=== PATIENT | female | born 2000 | race Caucasian/White ===

== ENCOUNTER 2023-02-26 05:10 | Inpatient (IN) | payer SELFPAY, OTHER ==
[2023-02-26] VITALS (47 sets, daily range): BP systolic 88–124; BP diastolic 45–74; PULSE 66–106; RESP 16–18; TEMP 36.4–37.6; O2SAT 94–100; BMI 27.8
[2023-02-26] MEDS: Lactated Ringers 1,000 ML 50 ML IV (05:30)
[2023-02-26 05:47] LABS: Absolute Lymphocyte Count 1.16 X10^3/uL (0.83-4.51); Absolute Neutrophil Count 11.4 X10^3/uL (2.0-7.7); Basophil# 0.06 X10^3/uL; Basophil% 0.4 % (0-1); Eosinophil# 0.04 X10^3/uL; Eosinophils% 0.3 % (0-5); Hematocrit 34.4 % (37-47); Hemoglobin 11.7 g/dL (12.0-15.0); Lymphocyte # 1.16 X10^3/ul (0.83-4.51); Lymphocyte % 8.6 % (19-41); Mean Corpuscular Hgb 32.3 pg (27.0-32.0); Mean Platelet Vol. 9.1 fl (6.2-12.0); Monocyte% 3.7 % (0-10); NRBC Flagged by Analyzer 0 % (0-5); Neutrophil # 11.42 X10^3/uL (2.7-7.7); Neutrophil % 85.1 % (47-70); Platelet Count 221 K/mm3 (150-450); RBC Distribution Width CV 13.7 % (11.6-14.6); RBC Distribution Width SD 47.8 fl (35.1-43.9); Red Blood Count 3.62 M/mm3 (4.2-5.4); White Blood Count 13.4 K/mm3 (4.4-11.0)
--- NOTE | 2023-02-26 06:31 | PCM.HP.OB ---
HPI - General General Date of Admission: 02/26/23 Date of Service: 02/26/23 HPI Narrative LANDON LITTLE, is a 23 F who presents with ctxs. Maternal Data Information Final GENESIS: 02/26/23 Gestational age: 40 weeks PFSH PFS Medical History delivery delivered depression Medical History no medical history Allergy/AdvReac Type Severity Reaction Status Date / Time No Known Drug Allergies Allergy Other Verified 02/26/23 05:37 Family History no significant family his Surgical History History of appendectomy Surgical History no surgical history Social History Smoking Status: Never smoker History Elective abortions Hx Para 1 Spontaneous abortions Hx # Term Pregnancies Ectopic pregnancies Hx # Pregnancies Multiple births # of living children NST FHR Rate Baby A Baseline: 145 Variability:: Moderate Accelerations:: 15 x 15 Decelerations:: Variable Uterine Activity:: Q 1-4 minutes Vital Signs Vital Signs Vital Signs: 02/26/23 02:17 02/26/23 02:17 02/26/23 05:45 Temperature 98.5 F Temperature Source Temporal Pulse Rate Blood Pressure 98/55 L BP Systolic 98 BP Diastolic 55 02/26/23 05:45 02/26/23 05:45 02/26/23 05:45 Temperature 98.5 F Temperature Source Temporal Pulse Rate 85 Blood Pressure BP Systolic BP Diastolic Weight Weight: 157 lb 6.561 oz Body Mass Index (BMI) 27.8 Physical Exam Const alert, oriented x3 and no apparent distress Narrative: cvx - 3cm, posterior per RN Labs Labs Labs: Blood Type A POSITIVE Antibody Screen NEGATIVE Hct 34.4 % (37-47) L Hgb 11.7 g/dL (12.0-15.0) L Syphilis Total Ab Pending See [facility] H&P Assessment & Plan (1) 40 weeks gestation of : COMMENT: @ 40 weeks (2) Patient desires vaginal after section (): PLAN: Plan Admit to L&D Expectant management Pain - epidural when ready GBS negative EFW - less than 4500g, patient with adequate pelvis Desires TOLAC - monitoring per [facility] protocol updated as taking over care
[2023-02-26 07:47] LABS: Syphilis Antibodies Non-reactive
[2023-02-26] MEDS: Oxytocin 15 Units/NS 250ml 15 UNITS/250 ML IV.SOLN 2 UNITS IV (08:05)
--- NOTE | 2023-02-26 08:20 | PCM.PN.BLA ---
Progress Note pt seen at bedside, VE: 3-4/80/-2. AROM- scant clear fluid. Irregular contraction pattern. Will start pitocin.
[2023-02-26] MEDS: LACTATED RINGERS 500 ML 999 ML IV ×2 (08:44→12:14)
[2023-02-26] MEDS: fentaNYL-bupivacaine (epidural) 100 ML BAG EPIDURAL (09:40)
[2023-02-26] MEDS: Lactated Ringers 1,000 ML 200 ML IV (12:14)
--- NOTE | 2023-02-26 13:07 | PCM.PN.BLA ---
Progress Note pt seen at bedside, VE performed: /-1. head feels to be asynclitic and OP position. Had nurse examine as well. No descent with pushing but just started and coached on pushing.
[2023-02-26] MEDS: Acetaminophen 500 MG Tablet PO (14:05)
[2023-02-26] MEDS: Sodium Citrate/Citric Acid 30 ML UDC PO (14:14)
[2023-02-26] MEDS: Cefazolin 2 GM in 0.9% Normal Saline 100 ML IV (14:47)
[2023-02-26] MEDS: Methylergonovine 0.2 MG/ML Ampul IM (15:00)
--- NOTE | 2023-02-26 15:27 | EX.PCM.OBRPT ---
Details Operative Information Date of Procedure: 02/26/23 Pre-Operative Diagnosis: 40 weeks gestation, Previous c/s, failed , Cat 2 FHR, Suspected CPD, asynclitic and OP position. Post-Operative Diagnosis: same, Live female Classification: YONNY Procedure Type: low transverse woods laborer #1: Nel Mckenzie Type of Anesthesia: Epidural Antibiotic Given: Ancef 2 grams IV x1 and Zithromax 500 mg/5 mL X1 Drain: López to straight drain Estimated Blood Loss: 600 Fluids Replaced: 1200 Procedure Start Time: 14:54 Procedure Stop Time: 15:30 Time of Delivery: 14:57 Findings Description of Procedure: Was fully dilated and pushing for approximately 1 hour and 20 minutes with no descent of the head. She was having late decelerations and some deep variable decelerations. Category 2 heart rate tracing. head was thought to be asynclitic and OP position still at -1 position. After informed consent was obtained the patient was taken the operating room. She was then placed in the supine position. She was prepped and draped in the normal sterile fashion. Epidural Anesthesia was found to be adequate. At this time a Pfannenstiel skin incision was made with a knife was carried down to the underlying layer of the fascia. The fascial incision was then extended laterally using curved Shaw scissor. Attention was then turned to the superior aspect of the fascial edge was grasped with 2 straight Boulder clamps tented up and the rectus muscle dissected off sharply using curved Shaw scissor. Rectus muscles were then in the midline bluntly and peritoneum was entered bluntly. Gentle opposing traction was placed. At this time the vesicouterine peritoneum was identified. Scalpel was used to make a uterine incision in a low transverse fashion. The uterus was then entered bluntly gentle opposing traction was placed to extend this incision. Infant's head was brought to the uterine incision was delivered atraumatically. Loose nuchal reduced. Delayed cord clamping performed. Cord was clamped and cut was handed to the waiting nursery team. The Placenta was removed from the uterus. The uterus was then removed from the abdominal cavity. The uterus was cleared of all clots and debris using a lap. Methergine given for uterine atony without hemorrhage. At this time the uterine incision was reapproximated using #1 Vicryl in a running locked fashion. followed by a second layer with interrupted 1-0 vicryl. Small extension down left side- hemostatic after running locked stitch with 1-0 vicryl placed. Hemostasis was appreciated. Posterior cul-de-sac was then cleared of all clots and debris. Uterus was placed back in the abdominal cavity. Gutters were cleared of all clots and debris. Uterine incision was reevaluated and noted to be of excellent hemostasis. Sherron placed. At this time the peritoneum was grasped with Kellys reapproximated using #2 Vicryl suture in a running fashion. sherron placed over rectus muscle. Fascia was then reapproximated using #1 Vicryl in a running fashion. Subcu layer was irrigated with Normal saline and then reapproximated with #2 0 plain gut suture in an interrupted fashion. Subcu layer was closed using 4-0 Monocryl in a subcu fashion. Dry sterile dressing was applied. Instrument lap needle count correct ?2. Anticipated normal postoperative course. Presentation: Positive for Vertex Amniotic Membrane Rupture Type: Artificial Amniotic Fluid Description: Clear Placental Delivery Description: Manual Removal Placenta Disposition: [facility] Cord Vessel Description: 3 Vessels Cord Entanglement: Around neck x 1, loose Nuchal Cord Compression: With compression Cord Gases: ABG and VBG Infant A Gender: Female (1 minute): 9 (5 minute): 10 Delayed Cord Clamping: Yes Complications Risks of Surgery Discussed w/Patient: Bleeding, Anesthesia Risks, Infection, Need for Future C-Sections and Injury to surrounding structure(s) including bowel and bladder Complications: none Admit VTE Documentation VTE Present on Admission: Yes VTE Mechan Device Prophylaxis: SCD's VTE Pharm Prophylaxis Ordered: No Reason Prophylaxis Not Ordered: Procedure Not Indicated
[2023-02-26] MEDS: Ketorolac 30 MG/ML Syringe IV ×2 (15:46→21:35)
[2023-02-26] MEDS: Oxytocin 15 Units/NS 250ml 15 UNITS/250 ML IV.SOLN 83 UNITS IV (15:46)
[2023-02-26] MEDS: Lactated Ringers 1,000 ML 100 ML IV (19:26)
[2023-02-26] MEDS: Acetaminophen 500 MG Tablet 1000 MG PO (19:46)
[2023-02-27 02:10] VITALS: RESP 16; O2SAT 98
[2023-02-27] MEDS: Acetaminophen 500 MG Tablet 1000 MG PO ×4 (02:12→20:48)
[2023-02-27] MEDS: Ketorolac 30 MG/ML Syringe IV ×2 (03:26→10:28)
[2023-02-27 03:45] VITALS: BP 83/40; PULSE 56; RESP 15; TEMP 36.5; O2SAT 96
--- NOTE | 2023-02-27 03:49 | NURSING ---
RN notes BP 83/40. Pt denies blurry vision and lightheadedness. Pt able to ambulate and tolerate well. HR 56 BPM. Tonya RN will notify provider in am.
[2023-02-27 05:02] LABS: Hematocrit 27.4 % (37-47); Hemoglobin 9.1 g/dL (12.0-15.0); Mean Corp Hgb Conc 33.2 g/dL (32-36); Mean Corpuscular Hgb 32.5 pg (27.0-32.0); Mean Corpuscular Volume 97.9 fL (81-99); Mean Platelet Vol. 8.9 fl (6.2-12.0); Platelet Count 188 K/mm3 (150-450); RBC Distribution Width CV 14.3 % (11.6-14.6); RBC Distribution Width SD 51.5 fl (35.1-43.9); White Blood Count 16.3 K/mm3 (4.4-11.0)
[2023-02-27 07:53] VITALS: BP 81/72; PULSE 55; RESP 16; TEMP 36.2; O2SAT 99
--- NOTE | 2023-02-27 08:20 | PCM.PN.OB ---
Subjective Subjective Patient is doing well and offers no complaints. She denies lightheadedness, dizziness, chest pain, shortness of breath, leg pain. Lochia is normal. She is ambulating and voiding without difficulty. She is tolerating liquids without nausea or vomiting. Objective Data Objective Data Vital Signs: Vital Signs Temp Pulse Resp BP Pulse Ox O2 Del Method 97.1 F L 55 L 16 81/72 L 99 Room Air 02/27/23 07:53 02/27/23 07:53 02/27/23 07:53 02/27/23 07:53 02/27/23 07:53 02/27/23 07:53 Oxygen Delivery Method Room Air Weight: 157 lb 6.561 oz Body Mass Index (BMI) 27.8 Intake & Output: Intake and Output for Last 24 Hours 02/25/23 02/26/23 02/27/23 23:59 23:59 23:59 Intake Total 3350.50 / 3350.50 1000 / 1000 Output Total 3000 / 4100 1600 / 1600 Balance 350.50 / -749.50 -600 / -600 Lab / Micro Data 02/27/23 04:56 Labs: Laboratory Results - last 24 hr 02/27/23 04:56: WBC 16.3 H, RBC 2.80 L, Hgb 9.1 L, Hct 27.4 L, MCV 97.9, MCH 32.5 H, MCHC 33.2, RDW Std Deviation 51.5 H, RDW Coeff of Pam 14.3, Plt Count 188, MPV 8.9 Physical Exam Const alert and no apparent distress General Appearance: comfortable Resp normal respiratory effort GI soft to palpation and non-distended GI Narrative: ATTP, dressing c/d/i Extremity normal to inspection and no calf tenderness Assessment & Plan (1) Delivery by section: COMMENT: POD#1 PLAN: Patient is doing well this morning. Routine postoperative care. Disposition: Anticipate discharge tomorrow (2) Acute blood loss anemia: PLAN: IV Venofer ordered for today. She denies any symptoms of anemia. Repeat CBC in the morning
[2023-02-27] MEDS: 0.9% Saline Lock 10 ML Syringe IV ×4 (09:13→10:28)
[2023-02-27] MEDS: Senna/Docusate Sodium 1 Tablet PO (10:27)
[2023-02-27 12:15] VITALS: BP 80/38; PULSE 58; RESP 16; TEMP 36.3
--- NOTE | 2023-02-27 13:06 | CASEMGMT ---
Social Work Assessment Labor and Delivery Unit Patient Address:[address] [place] [address] Phone number: [phone] Date of Referral: 02/26/23 Time of Referral:? 1822 Referred By: Kellie Kay Date of Intervention: ??02/27/23 Time of Intervention:? 1200 Reason for Referral:? mental health, history of PPD Sw completed chart review and acknowledges social work consult entered. Sw presented to bedside and introduced self to mother of baby (FER- Lela) and father of baby (FOBing- Christian). Sw explained reason for sw consult and completed psychosocial assessment. Sw provided parents with information on baby blues and depression. Sw asked FOB to step out of room so that MOB could complete Pala Depression Scale. FOB left respectfully and without issue. History obtained from: medical records and parents. ?? Household composition: Parents report that currently residing in their home is CHANTELLE MONROE, their older daughter and now baby girl. MOB states that her sister will be coming to stay with them for three weeks once she and baby are discharged from hospital. Parents state that their housing is adequate. Patient's parent/guardian status:? Parents report that they have known each other most of their lives. They went to school together and have grown up in the same [place]. They have been together for 3 years. They have one other child together. CHANTELLE was active and involved during labor. When meeting with FER alone MOB states that she is safe at home, and denies any concerns of domestic violence or intimate partner violence. Medical History: FER is 2, para 1- now 2. MOB states that she needed a for her first delivery because her pelvis is too narrow. MOB attempted to this delivery, however it also required a . MOB states that she has been told that any future pregnancies will need to be . MOB delivered baby girl on 02/26/23. Baby, named Citlaly was born weighing 7lb 15oz and her apgars were 9 and 10 at one and five minutes of life. Baby will see Dr. Garcia for a drum filler. MOB states that she is breast feeding and it is going ok. Educational Status:? Both parent completed the 8th grade which is common for the [facility] community. Financial Status: CHANTELLE is gainfully employed outside of the home. He works for a [employer] company, [employer]. CHANTELLE states that he is able to take some time off by using PTO. He plans to be off until Friday. Supplies:??FER states that they have everything that baby needs including safe sleep space (bassinet), clothes, diapers and wipes and a car seat. Childcare/Caregiver(s):? FER will be the primary caregiver to baby as she stays at home and does not work. CHANTELLE will be available to help when he is not working. FER states that her sister will also be able to come and stay with them for three weeks when they are home from the hospital. Transportation:?? Parents do not drive, they use a horse and buggy. For longer and further trips they hire a sprinkler driver. Programs/Agencies Involved: ?Family is not connected to any community resources at this time. Children Services/Legal Issues:??? No former involvement with Children's Services. No issues or concerns warranting a referral at this time. Behavioral Health Issues: ??Mental Health History:?CHANTELLE denies mental health history including mental health diagnoses. FER states that she has never been diagnosed with a mental health diagnosis, but did experience depression following the of her daughter. FER states that she had a lot of ups and downs with her emotions around 3 months . Dwight educated MOB and CHANTELLE on signs and symptoms of baby blues and depression. Sw encouraged parents to have a conversation about what CHANTELLE can do to help support MOB during this period. CHANTELLE expressed understanding. CHANTELLE acknowledged that he does not know a lot about and baby blues symptoms. FER stated that CHANTELLE is a positive support for her. ? FER did compelte the Pala Depression Scale, her score was a 6. Sw educated FER on her results and explained that should her score increase at a follow up doctors appointment social work would encourage MOB to get connected to additional mental health supporst. MOB expressed understanding.Substance Use History:?MOB denies substance use history prior to and during . ? Family History:?Parents deny family history of mental health diagnoses and mental health disorders. ?? Drug Screens: No urine screens observed in chart review. ? Family/Social Stressors:? Parents deny any stressors or concerns at this time. MOB will be admitted until tomorrow (Friday, 02/28). Sw encouraged MOB to reach out to sw should any issues or concerns arise prior to discharge. MOB expressed understanding. Support Systems: MOB states that she has 8 brothers and sisters and FOB has 11. MOB states that they have a lot of family and friends who are supportive. MOB states that FOB is a support for her, but he does struggle with how to help . Depression/Shaken Baby/Safe Sleeping:?MOB with history of depression and familiar with signs and symptoms to look for. Sw reviewed and educated FOB on signs and symptoms to be on the lookout for. FOB and MOB expressed understanding. Sw provided parents with educational literature for their review. Sw educated parents on shaken baby prevention and ABCs of safe sleep. Sw encouraged parents to educate their 2 year old on safe sleep as well. Parents expressed understanding of discussed topics. ASSESSMENT:? MOB currently admitted following labor and delivery of baby girl. MOB recovering following and states that she is doing well. MOB could be discharged today, but is staying through tomorrow. MOB and FOB at bedside, MOB observed to be holding baby in loving manner. FOB was engaged in conversation during psychosocial assessment. Parents were receptive to sw involvement and support. MOB has lots of family and friends who are supportive, but would benefit from getting connected to additional community [facility] health supports. PLAN:? MOB to be discharged tomorrow. Baby girl to be discharged to parents when medically ready ?No other services requested or indicated. Félix Ohara, LATHE TURNER, REMOTE M[employer]GAGE UNDERWRITER
[2023-02-27] MEDS: Ibuprofen 600 MG Tablet PO ×2 (16:34→22:15)
[2023-02-27 16:35] VITALS: BP 81/40; PULSE 60; RESP 16; TEMP 36.2; O2SAT 97
[2023-02-27 19:45] VITALS: BP 96/53; PULSE 89; RESP 16; TEMP 36.4; O2SAT 98
[2023-02-28 01:00] VITALS: BP 110/39; PULSE 79; RESP 15; TEMP 36.2; O2SAT 100
[2023-02-28] MEDS: Acetaminophen 500 MG Tablet 1000 MG PO ×2 (02:15→07:56)
[2023-02-28] MEDS: Ibuprofen 600 MG Tablet PO ×2 (04:34→09:30)
[2023-02-28 04:42] LABS: Hematocrit 26.4 % (37-47); Hemoglobin 8.5 g/dL (12.0-15.0); Mean Corp Hgb Conc 32.2 g/dL (32-36); Mean Corpuscular Hgb 32.2 pg (27.0-32.0); Mean Platelet Vol. 9.1 fl (6.2-12.0); Platelet Count 189 K/mm3 (150-450); RBC Distribution Width CV 14.6 % (11.6-14.6); RBC Distribution Width SD 52.3 fl (35.1-43.9); Red Blood Count 2.64 M/mm3 (4.2-5.4); White Blood Count 11.9 K/mm3 (4.4-11.0)
[2023-02-28 08:00] VITALS: BP 84/44; PULSE 62; RESP 16; TEMP 36.2; O2SAT 100
--- NOTE | 2023-02-28 08:25 | PCM.DC.SUM ---
Providers Date of Admission: 02/26/23 Primary Care Physician: No Primary Care Phys Reason For Visit: REPEAT C- SECTION Diagnosis Discharge Diagnosis (1) Delivery by section: Status: Acute (2) Acute blood loss anemia: Status: Acute Code(s): D62 - Acute posthemorrhagic anemia Plan POD 2 Repeat C/S S/P IV Venofer Requesting discharge home for family reasons Denies any dizziness, SOB, CP or headache Ambulating without difficulty Hospital Course Operations section Summary of Care Provided Minutes Spent on Discharge: 20 Hospital Course: Patient was for repeat section. Hospital course was uneventful Physical Exam Narrative Dressing is dry and intact Const alert and no apparent distress General Appearance: cooperative and comfortable Exam Limitations: no limitations HEENT normocephalic Eyes General Eye: normal appearance of both eyes Neck full ROM General: normal visual inspection Chest Chest: symmetrical chest wall rise Resp normal respiratory effort and normal air movement Effort and Inspection: symmetric chest movement Auscultation: clear to auscultation bilaterally Cardio regular rate and regular rhythm GI normal to inspection, nondistended, normoactive bowel sounds Back/Spine normal ROM Extremity full ROM and no calf tenderness General Extremity: normal exam except as noted Skin no rashes or lesions noted Neuro CN's II-XII intact bilaterally Psych mental status grossly normal Weight / BMI Weight Weight: 157 lb 6.561 oz Body Mass Index (BMI) 27.8 ABG / Lab / Microbiology Data 02/28/23 04:35 Laboratory: Laboratory Results - last 24 hr 02/28/23 04:35: WBC 11.9 H, RBC 2.64 L, Hgb 8.5 L, Hct 26.4 L, MCV 100.0 H, MCH 32.2 H, MCHC 32.2, RDW Std Deviation 52.3 H, RDW Coeff of Pam 14.6, Plt Count 189, MPV 9.1 D/C Instructions Discharge Diet: No restrictions Discharge Activity: May Drive (2 weeks) and May Shower May resume sexual activity in: 6-8 weeks Weight Bearing Status: Weight bearing as tolerated Call your doctor if your incision/area has: Continuous Slow Oozing, Sudden Increased Bleeding, Increased Pain/ Swelling, Increased Redness, Foul Smelling Discharge and Swelling at the incision site Call your doctor if you observe: Fever of 101 or Higher, Numbness or Tingling, Using more than 1 pad per hour, Shortness of breath, Dizziness, Swelling in the ankles, Chest pain, Calf discomfort and Uncontrolled pain Suture Line Care: Avoid Pulling/Pushing Change Dressing in: 5 days Remove Dressing in: 5 days Please Follow Up With: Alba Sousa CNM When: 1 week for incision check Meaningful Use Info Meaningful Use Diagnoses (Choose all that apply): None applicable Discharge Plan Admission Admit Date/Time: 02/26/23 05:10 Primary Reason for Your Visit: Labor and Delivery Attending Provider: Kellie Lockett Primary Care Provider: Care Physician,Mary Primary Discharge Orders/Prescriptions Referrals / Follow Up: Care Physician,No Primary [Primary Care Provider] - Disposition Disposition (needs filled in before D/C Order can be placed): Home, Self Care
[2023-02-28] MEDS: Senna/Docusate Sodium 1 Tablet PO (09:31)
== END 2023-02-28 10:43 | disposition home or self-care (01) | DRG 787 ==
LOC: WPOUT 05:17 → WP 05:17
PROVIDERS: Obstetrics & Gynecology; Admitting Provider Obstetrics & Gynecology; Referring Provider Obstetrics & Gynecology; Visit Provider Obstetrics & Gynecology
DX: O76 Abnormality in fetal heart rate and rhythm complicating labor and delivery (principal); D62 Acute posthemorrhagic anemia; O69.2XX0 Labor and delivery complicated by other cord entanglement, with compression, not applicable or unspecified; Z37.0 Single live birth; Z3A.40 40 weeks gestation of pregnancy; O66.41 Failed attempted vaginal birth after previous cesarean delivery; O34.219 Maternal care for unspecified type scar from previous cesarean delivery
CPT/HCPCS: 59025; 59050; 85025; 85027; 86780; 86850; 86900; 86901; 99221; J1756; J7120; A4216; G0378; J2405